=== PATIENT | female | born 1950 | race Caucasian/White ===

== ENCOUNTER → 2020-06-29 | Outpatient (CLI) | payer MEDICARE ==
--- NOTE | 2020-06-29 17:18 | DEXAMM ---
INDICATION: DISORDER OF BONE/M89.9. COMPARISON: None. TECHNIQUE: Bone density was measured using dual-energy x-ray absorptiometry (DEXA). FINDINGS: AP SPINE L1-L4 BMD 1.164 g/cm2 Young Adult T-Score -0.2 Age Matched Z-Score 1.4. LT FEMUR, TOTAL BMD 0.973 g/cm2 Young Adult T-Score -0.3 Age Matched Z-Score 1.2. LT NECK BMD 0.908 g/cm2 Young Adult T-Score -0.9 Age Matched Z-Score 0.8. IMPRESSION: There is normal bone density of the spine. There is normal bone density of the left hip. FOLLOW-UP: Recommendation for the next bone density exam: 5 years. <Electronically signed by Mehrdad Avalos > 06/29/20 [id number]
--- NOTE | 2020-07-06 14:38 | REP ---
INDICATION: SAÚL SCR MAMMO/Z12.31. COMPARISON: 08/03/2018. TECHNIQUE: MLO and CC views bilateral breasts performed. Dictation is delayed due to delay in acquiring prior images. FINDINGS: Mild scattered fibroglandular tissue is present bilaterally. Focal tiny calcifications in the upper outer quadrant of the left breast are stable with adjacent biopsy clip noted. An oval 1 cm nodular density which is smoothly marginated is seen in the medial left breast on the CC view. This is not well seen on the MLO view. I see no other evidence of mass or architectural distortion. Nonenlarged axillary lymph nodes are present. The Volpara volumetric breast density pattern is B. IMPRESSION: BIRADS/ACR category 0, incomplete. Oval 1 cm nodular density medial left breast. This is a only seen in the CC projection. Recommend spot-compression view left breast in the CC projection. Recommend mL tomographic sequence. Ultrasound may also be necessary. This patient's Tyrer-Cuzick lifetime breast cancer risk assessment score is 2.4%. This mammogram was interpreted with the aid of an FDA-approved computer-aided detection system. The patient states she had a clinical breast exam in over 1 year ago. The patient letter being requested is M0. RECOMMENDATION: Recommend spot compression views and ultrasound left breast. <Electronically signed by Mehrdad Avalos > 07/06/20 [id number]
== END ==
LOC: M WHC 12:07
PROVIDERS: ATTEND Nurse Practitioner Family
DX: Z12.31 Encounter for screening mammogram for malignant neoplasm of breast (principal); M89.9 Disorder of bone, unspecified; N63.20 Unspecified lump in the left breast, unspecified quadrant

== ENCOUNTER → 2020-07-31 | Outpatient (CLI) | payer MEDICARE ==
--- NOTE | 2020-07-31 11:42 | REP ---
INDICATION: ADDL VIEWS - LEFT BREAST NODULE. COMPARISON: Prior screening mammogram 06/29/2020 TECHNIQUE: Diagnostic digital magnified spot compression views of the left breast were obtained over the region of interest seen on prior screening mammogram. In addition, diagnostic ultrasonography of the left breast was obtained over the mammographic region of interest. FINDINGS: Diagnostic mammography in the cc and MLO projection show persistence of the small nodular density near the to 10 o'clock position. Diagnostic ultrasonography of the 10 o'clock position shows a mixed echo septated lesion which measures 0.8 x 0.2 x 0.9 cm IMPRESSION: BIRADS/ACR category 4 mammogram and focused left breast ultrasound exam. Ultrasound-guided biopsy is recommended. The patient letter being requested is M4. RECOMMENDATION: As above <Electronically signed by Marciano Garnica > 07/31/20 [id number]
== END ==
LOC: M WHC 09:40
PROVIDERS: ATTEND Nurse Practitioner Family
DX: Z12.31 Encounter for screening mammogram for malignant neoplasm of breast (principal); N63.21 Unspecified lump in the left breast, upper outer quadrant
CPT/HCPCS: 76642; 77065; G0279

== ENCOUNTER → 2020-08-26 | Outpatient (CLI) | payer MEDICARE ==
[~2020-08-26] MED LIST: CALC1TAB63 PO; HYDR-3490 PO; POTA99TA14 PO; VITMTA PO
[2020-08-26 10:55] VITALS: BP 112/78
--- NOTE | 2020-08-27 10:11 | REP ---
INDICATION: R92.8 ABN L MAMMO/US GUIDED/CYST ASPIRAT/CK CLIP PLCMT. COMPARISON: 06/29/2020. TECHNIQUE: MLO and CC views left breast with tomosynthesis. FINDINGS: Previously noted medial nodular density left breast not as well seen on current study. IMPRESSION: Previously noted medial nodular density left breast not as well seen on current study. RECOMMENDATION: None. <Electronically signed by Mehrdad Avalos > 08/27/20 [id number]
--- NOTE | 2020-08-29 17:15 | ROOPDOC ---
ISHMAEL EMANUEL DO Aug 29, 2020 17:15
--- NOTE | 2020-08-29 17:37 | ROOPDOC ---
[facility] Report Of Operation Report of Operation Date of the procedure:08/26/20 Diagnosis:Left breast complex cysts Procedure:Ultrasound guided aspiration of Left breast complex cyst Proceduralist: Ishmael Emanuel D.O. Lidocaine 1% LOT [id number] Expiration: 09/2023 Sodium Bicarbonate 8.4% LOT [id number] Expiration: 04/2021 Procedure details: Informed consent was obtained. The most common risk and possible complications including bleeding, hematoma, bruising, infection, injury to surrounding structures were explained to the patient and she expressed understanding. Patient was taken to the procedure room and placed on the bed in the supine position with the left upper extremity placed above the head. Appropriate time out was done stating patients name, date of , and the procedure to be performed. The left breast was prepped and draped in the usual fashion. The ultrasound was used to confirm the location of the complex cyst in the left breast at 10:00 6 centimeters from the nipple. Plain Lidocaine 1% and 8.4% sodium bicarbonate 10:1 mix was used to anesthetize the skin, and tissues along the anticipated aspiration tract. 18 G needle was used to aspirate cyst under direct ultrasound guidance. Aspirated fluid was serosanguinous and was sent for cytology. About 1 cc of fluid was removed. The cyst completely collapsed and images were captured. Manual pressure over the cyst aspiration site and tract was held. No bleeding was noted upon removal of the pressure. Post procedure left breast mammogram was done. On my interpretation of the images, it seems like the mammographic lesion resolved, however, we will wait for final interpretation by the radiologist. Patient tolerated procedure well. Discharge instructions were discussed with the patient and she expressed understanding. ISHMAEL EMANUEL DO Aug 29, 2020 17:37
== END ==
LOC: M WHCPRO 06:49
PROVIDERS: ATTEND Surgery
DX: N63.22 Unspecified lump in the left breast, upper inner quadrant (principal)
CPT/HCPCS: 10005; 77065; 88173; G0279

== ENCOUNTER → 2020-10-01 | Outpatient (CLI) | payer MEDICARE ==
--- NOTE | 2020-10-01 12:24 | REP ---
INDICATION: F/U CYST ASPIRATION,EVALUATE LT BREAST NODULE; F/U CYST ASPIRATION. COMPARISON: Comparison left breast mammography June 29, 2020 and August 03, 2018. TECHNIQUE: Craniocaudal, mediolateral, and mediolateral oblique views of the left breast are obtained. 3D tomography is performed. Targeted left breast sonography is carried out. This mammogram was interpreted with the aid of an FDA-approved computer-aided detection system. FINDINGS: Scattered fibroglandular elements are again noted. Vascular calcification is noted. There are stable groupings of microcalcification the central left breast and laterally. The lateral grouping and a has a needle biopsy marker clip adjacent. The nodular opacity identified recently on June 29, 2020 in the medial aspect of the left breast is no longer visible post cyst aspiration. There is no marker clips visible in this region of the left breast. No other significant mammographic finding. The Volpara volumetric breast density pattern is B. Targeted ultrasound: Targeted left breast sonography performed and compared with sonography from August 26, 2020 and July 31, 2020. Scanning is performed in the 10 o'clock position of the left breast. Normal stromal elements are seen by ultrasound. No cyst or mass is observed. The previously noted oval-shaped anechoic structure is no longer apparent. IMPRESSION: BIRADS/ACR category 2 benign left breast mammographic and sonographic findings. This patient's Tyrer-Cuzick lifetime breast cancer risk assessment score is 2.4%. RECOMMENDATION: Repeat screening mammography recommended 1 year (for women over 40). The patient letter being requested is M2. <Electronically signed by Prashant Head > 10/01/20 [id number]
== END ==
LOC: M WHC 10:17
PROVIDERS: ATTEND Nurse Practitioner Women's Health
DX: N63.22 Unspecified lump in the left breast, upper inner quadrant (principal); R92.0 Mammographic microcalcification found on diagnostic imaging of breast; Z98.890 Other specified postprocedural states
CPT/HCPCS: 76642; 77065; G0279

== ENCOUNTER 2020-10-17 17:44 | Emergency (ER) | payer MEDICARE ==
[~2020-10-17] VITALS: Ht 167.6 cm; Wt 88.6 kg
[2020-10-17 17:45] VITALS: BP 142/79
--- NOTE | 2020-10-17 21:24 | REPVR ---
PROCEDURE INFORMATION: Exam: CT Maxillofacial Without Contrast Exam date and time: 10/17/2020 8:43 PM Age: 70 years old Clinical indication: Injury or trauma; Fall; Blunt trauma (contusions or hematomas); Cheek bone and nose; Right; Additional info: Fell onto face/ swelling right orbit and nose TECHNIQUE: Imaging protocol: Computed tomography images of the face without contrast. Radiation optimization: All CT scans at this facility use at least one of these dose optimization techniques: automated exposure control; mA and/or kV adjustment per patient size (includes targeted exams where dose is matched to clinical indication); or iterative reconstruction. COMPARISON: No relevant prior studies available. FINDINGS: Orbital cavity: Mild preseptal and right frontal soft tissue edema on the right. Bones/joints: The cervical spine demonstrates moderate degenerative changes. There is hyperostosis frontalis interna. Small nondisplaced right nasal fracture. Deviated nasal septum to the left with an ipsilateral spur. Paranasal sinuses: Mild inflammatory changes in the ethmoid sinuses. Mild inflammatory changes in the right sphenoid sinus. Mild inflammatory changes in the right frontal sinus. Mild edema right paranasal region. Inflammatory narrowing of the right ostiomeatal complex. Soft tissues: Unremarkable. Nasal cavity: Amena bullosa on the right. IMPRESSION: 1. Mild preseptal and right frontal soft tissue edema on the right. No skull fracture. 2. Small nondisplaced right nasal fracture. 3. Sinusitis as described above. Electronically signed by: Bharathi Moore On 10/17/2020 21:23:42 PM
--- NOTE | 2020-10-17 21:25 | REPVR ---
PROCEDURE INFORMATION: Exam: XR Left Knee Exam date and time: 10/17/2020 8:31 PM Age: 70 years old Clinical indication: Other: Fell TECHNIQUE: Imaging protocol: XR Left knee. Views: 4 or more views. COMPARISON: No relevant prior studies available. FINDINGS: Bones/joints: Osteoporosis. Degenerative changes in the knee in the most pronounced in the patellofemoral joint space. Soft tissues: Normal. IMPRESSION: Osteoporosis. Mild degenerative changes as described above. No acute findings. Electronically signed by: Bharathi Moore On 10/17/2020 21:24:55 PM
== END 2020-10-17 22:23 | disposition home or self-care (01) ==
LOC: M ED 17:44
DX: S02.2XXA Fracture of nasal bones, initial encounter for closed fracture (principal); S00.83XA Contusion of other part of head, initial encounter; S80.211A Abrasion, right knee, initial encounter; S80.212A Abrasion, left knee, initial encounter; W18.39XA Other fall on same level, initial encounter; Y92.512 Supermarket, store or market as the place of occurrence of the external cause; M25.562 Pain in left knee; I10 Essential (primary) hypertension; E78.5 Hyperlipidemia, unspecified; Z79.899 Other long term (current) drug therapy

== ENCOUNTER → 2021-09-23 | Outpatient (CLI) | payer MEDICARE, MEDICAID | LOC: M WHC 13:53 | PROVIDERS: ATTEND Pediatrics | DX: Z12.31 Encounter for screening mammogram for malignant neoplasm of breast (principal) ==